=== PATIENT | female | born 1955 | race Caucasian/White ===

== ENCOUNTER 2024-05-14 13:08 | Emergency (ER) | payer MEDICARE, OTHER, SELFPAY ==
[2024-05-14 13:17] VITALS: BP 140/98
--- NOTE | 2024-05-14 14:01 | ED.GENMED ---
History of Present Illness
General
Chief Complaint: Heart Rate Problem
Source: patient
Exam Limitations: none
Time Seen by Provider: 05/14/24 13:55
History of Present Illness
History of Present Illness:
See MDM
Past History
Past History
ED Past Medical History: HTN and Psychiatric
ED Past Surgical History: Orthopedic
Social History
Tobacco: Non-smoker
Alcohol: None
Phy Exam
Physical Exam
Physical Exam:
See MDM
Course
Orders/Labs/Results
Orders:
Orders
05/14/24 13:10
ECG [Electrocardiogram (*1)] Urgent
Reason for Study: Abnormal EKG
EKG- Treatment ONCE
05/14/24 14:00
Diltiazem HCl [Cardizem] 20 mg IV NOW STA
05/14/24 14:13
Complete Blood Count/With Diff Urgent
Comprehensive Metabolic Panel Urgent
Free T4 Urgent
Magnesium Urgent
TSH Reflex To Free T4 Urgent
05/14/24 14:16
Add On- LAB Urgent
Tests Added?: tsh
05/14/24 14:57
Apixaban [Eliquis] 5 mg PO ONCE ONE
Metoprolol Xl [Toprol Xl] 25 mg PO NOW STA
Abnormal Lab Results
05/14/24
14:13
MCHC 32.9 L g/dL
(33.0-37.0)
Absolute Monos (auto) 0.7 H 10^3/uL
(0.1-0.6)
Lymphocytes % 15.9 L %
(20.5-51.1)
Glucose 112 H mg/dl
(70-99)
TSH (Reflex) 0.11 L uIU/ml
(0.47-4.68)
05/14/24 14:13
05/14/24 14:13
Vital Signs
Initial and Last Documented VS:
Initial Vital Signs
Temp Pulse Resp BP Pulse Ox
97.7 F 72 16 140/98 98
05/14/24 13:17 05/14/24 13:17 05/14/24 13:17 05/14/24 13:17 05/14/24 13:17
Last Documented Vital Signs
Temp Pulse Resp BP Pulse Ox
97.7 F 75 22 126/90 95
05/14/24 13:17 05/14/24 15:08 05/14/24 14:25 05/14/24 15:08 05/14/24 14:13
MDM/Problems Addressed
Differential Diagnosis Includes:
HPI and MDM Narrative:
68-year-old female presenting with new onset A-fib. Patient states her Apple Watch had indicated that she has been in A-fib for the past 2 weeks. She has been mildly short of breath with a viral URI. She took steroids which seemed to help.
Patient denies any chest pain or palpitation
Patient is not on anticoagulation. Will give IV dose of Cardizem to help rate control. She is otherwise well-appearing and nontoxic.
Physical exam
General: Well appearing and non-toxic
HEENT: protecting airway
Neck: appears supple
CV: No evidence of cyanosis. Tachycardic and irregular
Resp: No accessory muscle use. Lungs clear
Abd: Non-distended
Extremities: Mild nonpitting dependent edema in both legs which patient states is chronic
Neuro: alert
Psych: Normal affect
Skin: Intact
Problems Addressed including Acute and Chronic Conditions affecting care:
1. New onset A-fib
Acuity: acute
Prognosis: stable
Details: Will give dose of IV Cardizem. She is not a electrical cardioversion candidate because she is not anticoagulated
Updates
Electrolytes within normal limits. Patient is rate controlled and feels comfortable going home. Patient started on metoprolol. She was given a coupon for 30-day free Eliquis
Patient wanted to leave before thyroid function came back and she states that she will have her PCP followed up
Differential Diagnosis (but not limited to): Hyperthyroidism, new onset A-fib
Testing considered: Chest x-ray but lungs clear
Drug therapy (if applicable): OTC meds, please see d/c instruction regarding Rx drugs
Amount and/or Complexity of Data Reviewed
Clinical info obtained from: Patient
External data reviewed: N/A
Labs I independently reviewed (but not limited to): Electrolytes within normal limits
Radiology: N/A
Pulse Ox: not hypoxic
EKG independently reviewed: A-fib with RVR, normal axis, no STEMI
Sand Sifter: N/A
Critical Care: N/A
Risk of Complication:
Social Determinants of health: Good social support
Discussed with other providers: N/A
Escalation of Care includes Admit/Obs: After being observed in the Emergency Department, pt stable for discharge.
Occasional wrong word or 'sound a like' substitutions may have occurred due to the inherent limitations of voice recognition software. Read the chart carefully and recognize, using context, where substitutions have occurred.
*Critical Care Note
Total Time (30-74mins, 75-104mins- exclusive of procedures): Not Applicable
ED Attending Note
-
Portions of this chart may have been created with voice recognition software.� Occasional wrong word or��sound alike� substitutions may have occurred due to the inherent limitations of voice recognition software.
Discharge Plan
Departure
Patient Disposition: Home (Routine Discharge)
Date of Disposition: 05/14/24
Time of Disposition: 15:45
Patient with high blood pressure during this ER visit?: No
Discharge Problem:
New onset a-fib
Instructions: Atrial Fibrillation (DC)
Prescriptions:
New
Eliquis 5 mg tablet
5 mg PO BID Qty: 60 0RF
metoprolol succinate [Toprol XL] 25 mg tablet extended release 24 hr
25 mg PO DAILY Qty: 30 0RF
Referrals:
Rayna Painting DO [Family Provider] -
Julien Roberts MD [Active] -
Activity Restrictions/Additional Instructions:
Please return for any worsening symptoms.
You may return at any time if you have further concerns.
Please follow up with your doctor at the first available appointment, preferably this week.
Please follow-up with the advertising operations manager.
Thank you for choosing [facility].
Interventions
Interventions:
*Risk Screen - Suicide Last Done: 05/14/24 13:17
*General Assessment Last Done: 05/14/24 13:17
*Neglect/Abuse Screening Last Done: 05/14/24 13:17
ED- Fall Risk Assessment Last Done: 05/14/24 14:26
ED- Cardiac Assessment Last Done: 05/14/24 14:26
ED- Pulmonary Assessment Last Done: 05/14/24 14:26
Discharge Date and Time
Print Language: LAO
[2024-05-14 14:17] VITALS: BP 138/78
[2024-05-14 14:19] LABS: % Basophils 1.2 % (0-2); % Eosinophils 2.2 % (0-6); % Immature Granulocytes 0.2 % (0-0.5); % Lymphocytes 15.9 % (20.5-51.1); % Monocytes 7.8 % (1.7-9.3); % Neutrophils 72.7 % (42.2-75.2); Absolute Basophils 0.1 10^3/uL (0-0.2); Absolute Eosinophils 0.2 10^3/uL (0-0.7); Absolute Lymphocytes 1.3 10^3/uL (1.2-3.4); Absolute Monocytes 0.7 10^3/uL (0.1-0.6); Absolute Neutrophils 6.1 10^3/uL (1.4-6.5); Hematocrit 42.9 % (37.0-47.0); Hemoglobin 14.1 g/dL (12.0-16.0); Mean Corp Hgb Conc. 32.9 g/dL (33.0-37.0); Mean Corpuscular Hgb 30.8 pg (27.0-31.0); Mean Corpuscular Volume 93.7 fL (81.0-99.0); Mean Platelet Volume 10.4 fL (7.4-10.4); Nucleated Red Blood Cells % 0 %; Platelet Count 240 10^3/uL (130-400); Red Blood Cell Count 4.58 10^6/uL (4.20-5.40); White Blood Cell Count 8.4 10^3/uL (4.8-10.8)
[2024-05-14] MEDS: CARDIZEM 20 MG IV (14:23)
[2024-05-14 14:24] VITALS: BMI 37.5
[2024-05-14 14:33] LABS: ALT (SGPT) 18 U/L (0-35); AST (SGOT) 28 U/L (14-36); Albumin 4.4 g/dl (3.5-5.0); Alkaline Phosphatase 60 U/L (38-126); Blood Urea Nitrogen 14 mg/dl (7-17); Calcium 9.4 mg/dl (8.4-10.2); Carbon Dioxide 26 mmol/L (22-30); Chloride 103 mmol/L (98-107); Estimated Creatinine Clearance 101 ml/min; Glucose 112 mg/dl (70-99); Potassium 4.2 mmol/L (3.5-5.1); Sodium 143 mmol/L (135-145); Total Bilirubin 0.7 mg/dl (0.2-1.3); Total Protein 6.7 g/dl (6.3-8.2); eGFR > 60.00
[2024-05-14] MEDS: TOPROL XL 25 MG PO (15:08)
[2024-05-14] MEDS: ELIQUIS 5 MG PO (15:08)
[2024-05-14 15:41] LABS: TSH Reflex To Free T4 0.11 uIU/ml (0.47-4.68)
[2024-05-14 16:39] LABS: Free T4 1.22 ng/dl (0.78-2.19)
== END 2024-05-14 16:35 | disposition home or self-care (01) ==
LOC: EMR 13:08
PROVIDERS: EMERGENCY PHYSICIAN Student in an Organized Health Care Education/Training Program; FAMILY PHYSICIAN Family Medicine
DX: I48.91 Unspecified atrial fibrillation (principal); I10 Essential (primary) hypertension
CPT/HCPCS: 96374; 99284; 80053; 83735; 84439; 84443; 85025; 93005

== ENCOUNTER 2024-05-18 19:12 | Inpatient (IN) | payer MEDICARE, OTHER, SELFPAY ==
[2024-05-18] VITALS (7 sets, daily range): BP systolic 100–131; BP diastolic 54–100; BMI 37.3; BMI 36.1
--- NOTE | 2024-05-18 15:37 | W.PN.CD ---
Today's Communication / Plan
-
This is a consultation summary. Please see scanned consultation.
Diuresis with furosemide
Rate control with diltiazem gtt
Impression / Plan
-
BACKGROUND: 68F with anxiety, depression, PTSD, hypertension and recently diagnosed atrial fibrillation presented for outpatient cardiology evaluation was referred to the emergency department for atrial fibrillation with rapid ventricular response
and concern for heart failure.
Primary Phosphorus Processing Supervisor: Dr Mann
PLAN:
Shortness of breath
-This could be multifactorial in the setting of RVR and acute heart failure, plan as below
Atrial fibrillation with rapid ventricular response, persistent versus paroxysmal
-Start diltiazem bolus with drip for rate control
-Eventual rhythm control with FACUNDO/cardioversion when we have reached euvolemia (?)
-Oral Anticoagulation: Apixaban 5 mg twice daily, started 05/14/2024
-[id number]: score at least 5 (Heart failure, HTN, Diabetes Mellitus, age 65-74, female gender)
-TSH low but free T4 stable during prior ER visit
Heart failure, presumed HFpEF, acute
-Diuresis with furosemide, this requires intensive monitoring
-CXR and proBNP are pending, she has lower extremity edema (she attributes this to Toprol-XL) along with shortness of breath and orthopnea
-Trend daily weight, I/O, and BMP with diuresis
-Echocardiogram when rates have improved
-Case management to muhammad SGLT2
Hypertension
-Stop nebivolol, continue losartan
Right subclavian artery aneurysm
Type 2 diabetes, HgbA1c pending
Former smoker, continue cessation recommended
Obesity, prior VSG
ADHD on Adderall
Anxiety/depression/PTSD
SUBJECTIVE:
She endorses orthopnea, shortness of breath, and lower extremity edema
Physical Exam
Vital Signs/Labs
Vital Signs
Temp Pulse Resp BP Pulse Ox
98.6 F 85 18 131/100 96
05/18/24 15:15 05/18/24 15:15 05/18/24 15:15 05/18/24 15:15 05/18/24 15:15
Physical Exam
Constitutional: No acute distress and Comfortable
EENT: Anicteric and Moist mucous membranes
Cardiovascular: Pedal edema present (Bilateral lower extremity edema), S1S2 is normal and Murmur/rub/gallop absent
Respiratory: Labored respirations and Crackles Present
GI: Soft, Distention absent, Flat, Non tender and Normal bowel sounds
Neuro/Psych: AO x 3
Other: Skin (Warm and dry)
Data Reviewed
-
Date of Service: May 18, 2024
[2024-05-18 16:52] LABS: % Eosinophils 2.3 % (0-6); % Immature Granulocytes 0.4 % (0-0.5); % Lymphocytes 15.4 % (20.5-51.1); % Monocytes 8.9 % (1.7-9.3); Absolute Basophils 0.1 10^3/uL (0-0.2); Absolute Eosinophils 0.2 10^3/uL (0-0.7); Absolute Lymphocytes 1.2 10^3/uL (1.2-3.4); Absolute Monocytes 0.7 10^3/uL (0.1-0.6); Absolute Neutrophils 5.5 10^3/uL (1.4-6.5); Hematocrit 41.2 % (37.0-47.0); Hemoglobin 13.6 g/dL (12.0-16.0); Mean Corpuscular Hgb 31.7 pg (27.0-31.0); Mean Platelet Volume 10.6 fL (7.4-10.4); Nucleated Red Blood Cells % 0 %; Platelet Count 212 10^3/uL (130-400); Red Blood Cell Count 4.29 10^6/uL (4.20-5.40); Red Cell Dist. Width 13.2 % (11.5-14.5); White Blood Cell Count 7.7 10^3/uL (4.8-10.8)
--- NOTE | 2024-05-18 17:03 | ED.GENMED ---
History of Present Illness
General
Chief Complaint: Heart Rate Problem
Source: patient
Time Seen by Provider: 05/18/24 16:36
History of Present Illness
History of Present Illness:
68-year-old female presents to the emergency room for evaluation of shortness of breath, peripheral edema. Patient discovered that she was in atrial fibrillation by using her Apple Watch a few days ago. She was seen in the emergency room 4 days
ago. She was rate controlled with beta-blockers, started on Eliquis and discharged for outpatient follow-up. Patient followed up with cardiology today. Since discharge from the emergency room she has been experiencing worsening shortness of
breath and edema. She was therefore sent to the emergency room today for hospitalization so that she may undergo diuresis, rate control and cardioversion. Patient denies chest pain. She does feel more short of breath with exertion. She cannot
tell if she has orthopnea because she can never lay flat due to previous back surgery. Patient has been compliant with her Eliquis since being discharged on Friday. Her last dose was this morning.
Past History
Past History
ED Past Medical History: HTN and Psychiatric
ED Past Surgical History: Orthopedic
Social History
Tobacco: Non-smoker
Alcohol: None
Phy Exam
Physical Exam
Physical Exam:
General: Awake, Alert, Oriented X3. No acute distress.
Vitals: Tachycardic
Head: Atraumatic
Eyes: Pupils equal, EOMI
Throat: Airway intact, no exudates
Neck: Trachea midline
Lungs: Crackles bilateral bases
Heart: Rapid, regular
Abd: Soft, Nontender, No pulsatile mass
Neuro: Nonfocal
Skin: Warm, dry, no rash
Extremities: pulses equal b/l, 2+ edema
Course
Orders/Labs/Results
Orders:
Orders
05/18/24 Dinner
Regular
At Your Request: Full Participation
05/18/24 15:06
Electrocardiogram (*1) Urgent
Reason for Study: Chest Pain
EKG- Treatment ONCE
05/18/24 15:41
Add On- LAB Routine
Tests Added?: proBNP, TSH relfex to T4
05/18/24 16:18
Add On- LAB Routine
Tests Added?: Hgba1c
05/18/24 16:27
Basic Metabolic Panel Urgent
Complete Blood Count/With Diff Urgent
Free T4 Urgent
Glycohemoglobin (HgbA1c) Urgent
NT-proBNP Urgent
Comment: ADD ON
TSH Reflex To Free T4 Urgent
Comment: ADD ON
05/18/24 16:59
Diltiazem 125 mg/125 ml Nss [Cardizem] 125 mg in 125 ml IV NOW
Initial dose in mg/hr, then titrate:: 5
Titrate to keep:: Heart rate 80-100 bpm
Titrate by mg/hr:: 5 mg/hr
Frequency of titrations (minutes):: 15
Maximum dose in mg/hr:: 15
Diltiazem HCl [Cardizem] 15 mg IV NOW STA
Furosemide [Lasix] 40 mg IV NOW STA
05/18/24 17:00
CR Chest - 2 Views Urgent
Comment:
Reason For Exam: shortness of breath, edema
05/18/24 17:32
Case Management Consult ONCE
Case Management Consult: Discharge Planning
Comment: Please muhammad for patient:
Farxiga 10 mg daily
Jardiance 10 mg daily
05/18/24 18:17
Admit/Transfer Patient As Directed
Co-Sign Provider:
Level of Care: Inpatient admission
Assign to:: IVU
Physician / Group: Hospitalist
Diagnosis: Afib
Reason for Hospitalization: .
Expected length of stay greater than two midnights?: Yes
ELOS- Estimated Length of Stay in days: 3
I certify the patient meets the requirements for IP care: Yes
Code Status As Directed
Resuscitation Status: Full Code
PRN Pain Medication Management As Directed
May give lesser potent ordered pain med per pt: Yes
preference::
Protocol:: Medication orders for pain may be administered in a
manner that supports deferring to patient preference
when the pt is:
- Requesting an ordered lesser potent pain medication.
Least to most potent pain medications are defined
as: acetaminophen < NSAID < tramadol < opioids
(morphine, oxycodone, hydromorphone).
- Requesting a lesser dose of the same medication IF
ORDERED.
- Requesting a less intrusive route of administration
if both routes are prescribed by the provider (PO <
IV).
05/18/24 18:48
Potassium Stat
Troponin I Stat
05/18/24 19:52
Albuterol [ProAIR HFA INHALER] 2 puff INH R Q4HPRN PRN
Alprazolam [Xanax] 0.5 mg PO DAILYPRN PRN
Diltiazem 125 mg/125 ml Nss [Cardizem] 125 mg in 125 ml IV PER PROTOCOL
Initial dose in mg/hr, then titrate:: 5
Titrate to keep:: Heart rate 80-100 bpm
Titrate by mg/hr:: 5 mg/hr
Frequency of titrations (minutes):: 15
Maximum dose in mg/hr:: 15
05/18/24 19:52
Echo 2D MMode Color/Doppler [Echo 2D MMode Color/Doppler] Routine
Reason for Study: Heart failure
Consult Cardiology [CARDIOLOGY CONSULT] Routine
Consulting Provider: Adeel Mann
Was physician already notified: Yes
Reason for consult: A fib
Weight As Directed
Frequency: Daily
05/18/24 20:00
Apixaban [Eliquis] 5 mg PO BID
05/18/24 22:00
Alprazolam [Xanax] 0.5 mg PO HS
Ropinirole [Requip] 1 mg PO HS
Trazodone [Desyrel] 100 mg PO HS
05/19/24 06:00
BMP [Basic Metabolic Panel] IN AM
Magnesium IN AM
05/19/24 08:00
Amphet Asp/Amphet/D-Amphet [Adderall] 10 mg PO BID@0800,1300
Furosemide [Lasix] 40 mg IV BID AT 0800,1600
Rosuvastatin Calcium [Crestor] 5 mg PO DAILY
Abnormal Lab Results
05/18/24
16:27
MCH 31.7 H pg
(27.0-31.0)
MPV 10.6 H fL
(7.4-10.4)
Absolute Monos (auto) 0.7 H 10^3/uL
(0.1-0.6)
Lymphocytes % 15.4 L %
(20.5-51.1)
Glucose 100 H mg/dl
(70-99)
TSH (Reflex) 0.41 L uIU/ml
(0.47-4.68)
05/18/24 16:27
05/18/24 18:48
Vital Signs
Initial and Last Documented VS:
Initial Vital Signs
Temp Pulse Resp BP Pulse Ox
98.6 F 85 18 131/100 96
05/18/24 15:15 05/18/24 15:15 05/18/24 15:15 05/18/24 15:15 05/18/24 15:15
Last Documented Vital Signs
Temp Pulse Resp BP Pulse Ox
97.6 F 75 23 110/91 96
05/18/24 22:23 05/18/24 22:16 05/18/24 19:30 05/18/24 22:16 05/18/24 22:23
MDM/Problems Addressed
Differential Diagnosis Includes:
CHF, A-fib with rapid ventricular response, anemia
MDM/Problems Addressed:
Patient presents with increasing peripheral edema, shortness breath with exertion. She was seen recently in the emergency room and started on rate control medication and Eliquis for A-fib. When seen by cardiology she was referred back to the
emergency room. Labs today show her BNP to be elevated at 3370. Cardizem started for rate control. IV Lasix administered. Patient will be admitted to the hospital service.
*Pulse Oximetry
Patient hypoxic: no
*EKG
Interpreted by ED Provider?: Yes
Heart Rate: 122
Rate: tachycardiac
Rhythm: a-fib
Interval: normal interval
QRS Pattern: normal QRS
Ischemia: non-specific ST changes
*Containers Sales Representative Interpretation
Rate: tachycardiac
Interpretation: abnormal
Heart Rate: 122
Rhythm: a-fib
*Critical Care Note
Total Time (30-74mins, 75-104mins- exclusive of procedures): 33 min
comment:
Critical care statement: A total of 33 minutes of critical care time was provided for this patient. This includes management of unstable vital signs, evaluation of the patient at bedside, reviewing the patient's pertinent medical records, discussion
with consultants, review of old EKGs and review of pertinent medical records. This time with separate from time utilized to perform the aforementioned documented procedures
ED Attending Note
-
Portions of this chart may have been created with voice recognition software.� Occasional wrong word or��sound alike� substitutions may have occurred due to the inherent limitations of voice recognition software.
Discharge Plan
Departure
Patient Disposition: Admit
Date of Disposition: 05/18/24
Time of Disposition: 18:01
Admit to: Telemetry
Presentation/result/management discussed w/ accepting MD/DO: Hospitalist
Condition: Fair
Discharge Problem:
Atrial fibrillation with rapid ventricular response, CHF (congestive heart failure)
Interventions
Interventions:
*Risk Screen - Suicide Last Done: 05/18/24 19:59
*General Assessment Last Done: 05/18/24 15:15
*Neglect/Abuse Screening Last Done: 05/18/24 15:15
ED- Fall Risk Assessment Last Done: 05/18/24 16:26
*ED COVID-19 Vaccine History Last Done: 05/18/24 15:15
*Nursing Disposition Last Done: 05/18/24 19:37
ED- Cardiac Assessment Last Done: 05/18/24 16:26
ED- Pulmonary Assessment Last Done: 05/18/24 16:26
Discharge Date and Time
Discharge Date/Time: 05/18/24 19:37
[2024-05-18] MEDS: LASIX 40 MG IV (17:06)
[2024-05-18] MEDS: CARDIZEM 15 MG IV (17:08)
[2024-05-18] MEDS: CARDIZEM 125 IV (17:09)
[2024-05-18 17:11] LABS: Blood Urea Nitrogen 15 mg/dl (7-17); Estimated Creatinine Clearance 122 ml/min; Glucose 100 mg/dl (70-99); Sodium 141 mmol/L (135-145); eGFR > 60.00
[2024-05-18 17:12] LABS: Calcium 9.4 mg/dl (8.4-10.2); Carbon Dioxide 25 mmol/L (22-30); Chloride 104 mmol/L (98-107)
[2024-05-18 17:16] LABS: NT-proBNP 3370 pg/ml
[2024-05-18 17:39] LABS: TSH Reflex To Free T4 0.41 uIU/ml (0.47-4.68)
--- NOTE | 2024-05-18 18:03 | HPS.HSE ---
Family Physician
-
Family Physician: Rayna Painting
Chief Complaint
-
Exertional shortness of breath for few days duration with new onset of atrial fibrillation. Patient was sent from cardiology office
History of Present Illness
This is 68 years old female presented with history of shortness of breath and worsening peripheral edema. Patient was found to have atrial fibrillation was recently started on Eliquis. She was taking Bystolic but she was changed to metoprolol.
She felt metoprolol exacerbated her peripheral lower extremity edema. She denied chest pain. She presented for cardiology appointment today and she was referred to the hospital for management of uncontrolled atrial fibrillation with suspected
heart failure. In the emergency room, she was started on intravenous Cardizem. Her heart rate was around 70 on Cardizem drip and still in atrial fibrillation.
Medical History
Past Medical History
Past Medical History: Reports Other (Hypertension, A-fib, chronic insomnia, anxiety, depression, PTSD, restless leg syndrome, Gastroesophageal reflux disease)
Past Surgical History: Reports Other (No recent major surgery)
Social History
Tobacco: Non-smoker
Alcohol: None
Drug: None
Personal:
Living: With Family
Employment: Retired (Nurse)
Family History
Family History: Other (Her mother had RI at age of 80s, Hx of CVA )
Allergies / Home Medications
Allergies reflects when Allergies were last updated in [facility].
Home Medications with original date entered in [facility]
Allergy/Medication List:
Allergies
Allergy/AdvReac Type Severity Reaction Status Date / Time
No Known Allergies Allergy Unverified 05/14/24 13:17
Home Medications
apixaban 5 mg tablet (Eliquis) 5 mg PO BID #60 tabs 05/14/24
metoprolol succinate 25 mg tablet,extended release 24 hr (Toprol XL) 25 mg PO DAILY #30 tabs 05/14/24
Review of Systems
-
History Source: Patient
A 12 point ROS was completed and negative except as noted: Yes
Constitutional: Reports Weight Loss; Denies Fever, Weight Gain or Chills
EENT: Denies Sore Throat or Runny Nose
Respiratory: Reports Trouble Breathing; Denies Cough
Cardiac: Denies Chest Pain
Abdomen/GI: Denies Abdominal Pain
: Reports Incontinence; Denies Frequency
Musculoskeletal: Denies Joint Pain or Joint Swelling
Skin: Denies Rash
Neurological: Denies Numbness
Endocrine: Denies Temp Intolerance
Hematologic/Lymphatic: Denies Bruising
Psych: Denies Panic Disorder
Physical Exam
Vital Signs
Vital Signs
Temp Pulse Resp BP Pulse Ox
98.6 F 91 17 109/68 93
05/18/24 15:15 05/18/24 17:15 05/18/24 17:15 05/18/24 17:08 05/18/24 17:15
Physical Exam
General: No Apparent Distress, Comfortable and Conversant
HEENT: Anicteric, Moist mucous membranes and Atraumatic
Respiratory: Rales (mild at bases )
Cardiac: S1/S2, Irregular Rhythm and Peripheral Edema; No Murmur
GI: Soft, Non Tender and Non Distended
Rectal: No Maroon Stools
Genito-urinary: No costovertebral tender
Musculoskeletal: No Clubbing and No Cyanosis
Skin: No Jaundice
Neuro: AO x 3 and Nonfocal/grossly intact
Psych: Calm and Intact Judgment/Insight
Laboratory Results
-
05/18/24 16:27
05/18/24 16:27
Laboratory Results
Total Bilirubin Cancelled 05/18/24 16:27
AST Cancelled 05/18/24 16:27
ALT Cancelled 05/18/24 16:27
Alkaline Phosphatase Cancelled 05/18/24 16:27
Impression/Plan
-
68 years old female presented with history of worsening exertional shortness of breath with new onset atrial fibrillation
#Acute heart failure, suspect diastolic in nature, likely precipitated by uncontrolled tachycardia/A-fib
Admit the patient to the hospital. Patient reported progressive exertional shortness of breath and peripheral edema with no chest pain. Continue rate control. Follow weight. Continue with intravenous Lasix. EKG, atrial fibrillation with
nonspecific ST changes. Continue to monitor renal function and electrolytes. Check troponin. Order echocardiogram.
#Paroxysmal atrial fibrillation, on rapid ventricular response
Continue conveyor monitor. Continue Cardizem drip and titrate down to oral medication as possible. Continue with Eliquis.
#History of anxiety/depression. Mood is cooperative. Continue home medication. She is on Pristiq which she will bring from home.
#History of severe restless leg syndrome, continue with ropinirole
History of urinary incontinence
History of GERD, continue with PPI
#DVT prophylaxis, continue with Eliquis
Total time spent to see the patient, examine the patient on the floor, review data and lab results, discuss treatment plan with patient, ER doctor, nursing staff around 75 minutes
[2024-05-18 18:07] LABS: Free T4 1.21 ng/dl (0.78-2.19)
[2024-05-18 19:14] LABS: Potassium 3.8 mmol/L (3.5-5.1)
[2024-05-18 19:21] LABS: Troponin I < 0.012 ng/ml
[2024-05-18] MEDS: ELIQUIS 5 MG PO (20:19)
[2024-05-18] MEDS: NON-FORMULARY ITEM PO (20:47)
--- NOTE | 2024-05-18 20:47 | PTCARENOTE ---
Pt. received from ED. Pt. arriving on stretcher, AOx3, tele reading Afib in the 80s-110s. Last BP 109/75. Cardizem gtt @ 5ml/hr. Titrating per protocol. RN explained plan of care to patient, pt. verbalizes understanding. Call torres within reach.
Continuing to monitor at this time.
[2024-05-18] MEDS: REQUIP 1 MG PO (22:18)
[2024-05-18] MEDS: DESYREL 100 MG PO ×2 (22:18→23:07)
[2024-05-18] MEDS: XANAX 0.5 MG PO (22:18)
[2024-05-19] VITALS (7 sets, daily range): BP systolic 100–138; BP diastolic 74–108; BMI 36.1; BMI 35.6
[2024-05-19 05:06] LABS: Blood Urea Nitrogen 14 mg/dl (7-17); Calcium 9.2 mg/dl (8.4-10.2); Carbon Dioxide 32 mmol/L (22-30); Chloride 101 mmol/L (98-107); Estimated Creatinine Clearance 101 ml/min; Glucose 118 mg/dl (70-99); Magnesium 1.9 mg/dl (1.6-2.3); Sodium 143 mmol/L (135-145); eGFR > 60.00
--- NOTE | 2024-05-19 06:42 | W.PN.HOSP.TC ---
Today's Communication/Plan
-
c/w Eliquis
Change to oral Cardizem
Will need to bring her home medications ( omeprazole, desvenlafaxine, Gemtesa)
Assessment / Plan
Assessment / Plan
Physical Exam
General: No Apparent Distress, Comfortable and Conversant
HEENT: Anicteric, Moist mucous membranes and Atraumatic
Respiratory: Rales (mild at bases )
Cardiac: S1/S2, Irregular Rhythm and Peripheral Edema; No Murmur
GI: Soft, Non Tender and Non Distended
Rectal: No Maroon Stools
Genito-urinary: No costovertebral tender
Musculoskeletal: No Clubbing and No Cyanosis
Skin: No Jaundice
Neuro: AO x 3 and Nonfocal/grossly intact
Psych: Calm and Intact Judgment/Insight
68 years old female presented with history of worsening exertional shortness of breath with new onset atrial fibrillation
#Acute heart failure, suspect diastolic in nature, likely precipitated by uncontrolled tachycardia/A-fib
Admit the patient to the hospital. Patient reported progressive exertional shortness of breath and peripheral edema with no chest pain. Continue rate control. Follow weight. Continue with intravenous Lasix. EKG, atrial fibrillation with
nonspecific ST changes. Negative troponin. Continue to monitor renal function and electrolytes. Order echocardiogram. Consulted cardiology .
#Paroxysmal atrial fibrillation, on rapid ventricular response
Continue compliance monitor.
s/p Cardizem drip, can change to oral Cardizem
[id number]: 4 Continue with Eliquis.
#History of anxiety/depression. Mood is cooperative. Continue home medications. She is on Pristiq which she will bring from home.
#History of severe restless leg syndrome, continue with ropinirole
# History of urinary incontinence
#History of GERD, continue with PPI
#DVT prophylaxis, continue with Eliquis
Total time spent to see the patient, examine the patient on the floor, review data and lab results, discuss treatment plan with patient, nursing staff around 55 minutes
Anticipated Discharge: 24 - 48 hours
Subjective/Interval History
-
Date of Service: May 19, 2024
Objective Data
-
Labs:
Laboratory Results
05/18/24 05/19/24
18:48 04:09
Sodium 143
Potassium 3.8 4.0
Chloride 101
Carbon Dioxide 32 H
BUN 14
Creatinine 0.7
Glucose 118 H
Calcium 9.2
Vital Signs:
Vital Signs
Temp Pulse Resp BP Pulse Ox
98.1 F 70 23 125/86 95
05/19/24 04:13 05/19/24 05:00 05/18/24 19:30 05/19/24 04:12 05/19/24 04:13
I&O
05/17/24 05/18/24 05/19/24
06:59 06:59 06:59
Intake Total 100 / 100
Output Total 200 / 200
Balance -100 / -100
--- NOTE | 2024-05-19 07:36 | W.PN.CD ---
Today's Communication / Plan
-
Stop dilt gtt, start dilt 60 q6hr
Cont diuresis
NPO after midnight whitney DCCV tomorrow
Impression / Plan
-
BACKGROUND: 68F with anxiety, depression, PTSD, hypertension and recently diagnosed atrial fibrillation presented for outpatient cardiology evaluation was referred to the emergency department for atrial fibrillation with rapid ventricular response
and concern for heart failure.
Primary Motors And Generators Inspector: Dr Mann
PLAN:
Shortness of breath
-Improved likely related to volume and AF RVR
Atrial fibrillation with rapid ventricular response, persistent versus paroxysmal
-Transition to dilt 60 q6hr, plan to start long acting tomorrow
-Eventual rhythm control with WHITNEY/cardioversion when we have reached euvolemia (?)
-Oral Anticoagulation: Apixaban 5 mg twice daily, started 05/14/2024
-[id number]: score at least 5 (Heart failure, HTN, Diabetes Mellitus, age 65-74, female gender)
-TSH low but free T4 stable during prior ER visit
Heart failure, presumed HFpEF, acute
-Cont IV diuresis, stop diuresis tomorrow
-Trend daily weight, I/O, and BMP with diuresis
-Echocardiogram today
-Case management to muhammad SGLT2
Hypertension
-Stop nebivolol, continue losartan
Right subclavian artery aneurysm
Type 2 diabetes, HgbA1c pending
Former smoker, continue cessation recommended
Obesity, prior VSG
ADHD on Adderall
Anxiety/depression/PTSD
SUBJECTIVE:
Feeling better today no new CV symptoms
Physical Exam
Vital Signs/Labs
Vital Signs
Temp Pulse Resp BP Pulse Ox
98 F 70 18 125/86 94
05/19/24 07:30 05/19/24 07:15 05/19/24 07:30 05/19/24 04:12 05/19/24 07:30
05/18/24 05/19/24 05/20/24
06:59 06:59 06:59
Actual Weight 247 lb 12.793 oz
05/18/24 16:27
05/19/24 04:09
Magnesium 1.9 mg/dl (1.6-2.3) 05/19/24 04:09
Free T4 1.21 ng/dl (0.78-2.19) 05/18/24 16:27
05/18/24
16:27
Qwc-[id number]-Ntocnlqjjlp Pept 3370
LAB Results
05/18/24
18:48
Troponin I < 0.012
Physical Exam
Constitutional: No acute distress and Comfortable
EENT: Anicteric
Cardiovascular: Rhythm/rate is irregular and Pedal edema present
Respiratory: Respiratory effort normal and Lungs clear to auscul.
GI: Soft
Neuro/Psych: AO x 3
Data Reviewed
-
Date of Service: May 19, 2024
Medical Decision Making: Reviewed Test Results
EKG: Tracing Personally Visualized and interpreted (af)
Echo: Report Reviewed by me
Labs: Labs Reviewed by me
[2024-05-19] MEDS: CARDIZEM 60 MG PO ×4 (08:30→23:04)
[2024-05-19] MEDS: ELIQUIS 5 MG PO ×2 (08:30→20:19)
[2024-05-19] MEDS: CRESTOR 5 MG PO (08:30)
[2024-05-19] MEDS: ADDERALL 10 MG PO (08:30)
[2024-05-19] MEDS: LASIX 40 MG IV ×2 (08:30→16:02)
[2024-05-19 09:27] LABS: Glycohemoglobin (HgbA1c) 6.3 % (4.0-5.6)
--- NOTE | 2024-05-19 10:30 | CARDSERVLU ---
Echocardiogram with Lumason completed after protocol screening completed. Allergies verified.
Patent IV site: __L hand___
IV site flushed with 0.9% NaCl pre and post administration.
Diluted bolus method utilized to enhance visualization of ventricular rader.
Total volume given: _2.5___ mL
Patient tolerated all procedures well without complications.
--- NOTE | 2024-05-19 10:38 | CM ---
Priced Jaguar, Sabrina and Eliquis thru insurance, .
Additionally, priced Eliquis thru insurance as she was just put on this.
Estimated cost for all medications are $0/mo.
TT to [facility] to update.
[2024-05-19] MEDS: NON-FORMULARY ITEM 6 TABLET PO (11:04)
[2024-05-19] MEDS: ADDERALL PO (12:58)
--- NOTE | 2024-05-19 13:56 | CM ---
CM following for DC planning needs.
Met w/ patient and spouse at bedside to complete initial assessment.
Pt. resides w/ spouse in a private, split level home. There are 6-7 steps between levels. Pt. is functionally indep. at baseline w/ ADLs, mobility without the use of any assisted device. Pt. does have a SPC in the home, which she uses for community
long distances.
Pt. has RX plan and uses [facility] for prescription needs.
Reviewed estimated cost of Sabrina, Jaguar and Elidallas of $0. Pt. states that she is currently out of 'the donut hole' and is searching for other Rx plans for new year to lower cost. She is well-versed in this.
Pt. declines any needs at time of DC.
Will remain available.
Anticipate home, no needs.
[2024-05-19] MEDS: NON-FORMULARY ITEM 1 MG PO ×3 (14:02→14:29)
--- NOTE | 2024-05-19 16:20 | PTCARENOTE ---
no change in previous assessment. Pt ambulating in room without difficulty. Pt in afib. IV lasix given as ordered.
[2024-05-19] MEDS: REQUIP 0.5 MG PO (18:10)
[2024-05-19] MEDS: TYLENOL 650 MG PO (20:18)
--- NOTE | 2024-05-19 22:45 | PTCARENOTE ---
Patient ambulating self in room/hallways w/out difficulty. Tele remains Afib w/ occasional PVCs, HR in the 70-110s. Pt denies any chest discomfort or palpitations. Pt reports feeling MONTANEZ, pulse ox 94-97% RA. Lungs clear throughout. Patient aware to
maintain NPO status at midnight for a Kareem/CV on 05/20. Call torres within reach.
[2024-05-19] MEDS: XANAX 0.5 MG PO (23:04)
[2024-05-19] MEDS: DESYREL 200 MG PO (23:04)
[2024-05-19] MEDS: REQUIP 1 MG PO (23:04)
[2024-05-20] VITALS (7 sets, daily range): BP systolic 92–126; BP diastolic 48–88; BMI 35.1
[2024-05-20 04:52] LABS: Blood Urea Nitrogen 13 mg/dl (7-17); Calcium 9.1 mg/dl (8.4-10.2); Carbon Dioxide 35 mmol/L (22-30); Chloride 98 mmol/L (98-107); Estimated Creatinine Clearance 99 ml/min; Glucose 93 mg/dl (70-99); Potassium 3.6 mmol/L (3.5-5.1); Sodium 141 mmol/L (135-145); eGFR > 60.00
--- NOTE | 2024-05-20 06:21 | W.PN.HOSP.TC ---
Today's Communication/Plan
-
She is NPO for cardioversion
Will follow
Assessment / Plan
Assessment / Plan
Physical Exam
General: No Apparent Distress, Comfortable and Conversant
HEENT: Anicteric, Moist mucous membranes and Atraumatic
Respiratory: Rales (mild at bases )
Cardiac: S1/S2, Irregular Rhythm and Peripheral Edema; No Murmur
GI: Soft, Non Tender and Non Distended
Rectal: No Maroon Stools
Genito-urinary: No costovertebral tender
Musculoskeletal: No Clubbing and No Cyanosis
Skin: No Jaundice
Neuro: AO x 3 and Nonfocal/grossly intact
Psych: Calm and Intact Judgment/Insight
68 years old female presented with history of worsening exertional shortness of breath with new onset atrial fibrillation
#Acute heart failure, suspect diastolic in nature, likely precipitated by uncontrolled tachycardia/A-fib
Admit the patient to the hospital. Patient reported progressive exertional shortness of breath and peripheral edema with no chest pain. Continue rate control. Follow weight. Continue with intravenous Lasix. EKG, atrial fibrillation with
nonspecific ST changes. Negative troponin. Continue to monitor renal function and electrolytes. Order echocardiogram. Consulted cardiology .
#Paroxysmal atrial fibrillation, on rapid ventricular response
She is NPO for cardioversion
Continue monitor tech.
s/p Cardizem drip, can change to oral Cardizem
[id number]: 4 Continue with Eliquis.
#History of anxiety/depression. Mood is cooperative. Continue home medications. She is on Pristiq which she will bring from home.
#History of severe restless leg syndrome, continue with ropinirole
# History of urinary incontinence
#History of GERD, continue with PPI
#DVT prophylaxis, continue with Eliquis
Total time spent to see the patient, examine the patient on the floor, review data and lab results, discuss treatment plan with patient, nursing staff around 55 minutes
Anticipated Discharge: Within 24 hours
Subjective/Interval History
-
Date of Service: May 20, 2024
No sob
No chest pain
Objective Data
-
Labs:
Laboratory Results
05/20/24
04:07
Sodium 141
Potassium 3.6
Chloride 98
Carbon Dioxide 35 H
BUN 13
Creatinine 0.7
Glucose 93
Calcium 9.1
Vital Signs:
Vital Signs
Temp Pulse Resp BP Pulse Ox
97.4 F 83 20 92/48 95
05/20/24 03:57 05/20/24 04:00 05/20/24 03:57 05/20/24 03:55 05/20/24 03:57
I&O
05/18/24 05/19/24 05/20/24
06:59 06:59 06:59
Intake Total 100 / 100 500 / 500
Output Total 200 / 200 1000 / 1000
Balance -100 / -100 -500 / -500
[2024-05-20] MEDS: LASIX 40 MG IV ×2 (08:29→15:19)
[2024-05-20] MEDS: ELIQUIS 5 MG PO ×2 (08:30→19:45)
[2024-05-20] MEDS: CRESTOR 5 MG PO (08:30)
[2024-05-20] MEDS: CARDIZEM 60 MG PO ×4 (08:30→22:50)
[2024-05-20] MEDS: NON-FORMULARY ITEM 1 TABLET PO (08:30)
[2024-05-20] MEDS: ADDERALL 10 MG PO ×2 (08:30→12:52)
[2024-05-20] MEDS: FLUSH (NSS) 1 FLUSH IV ×2 (08:33→15:20)
[2024-05-20] MEDS: NON-FORMULARY ITEM 1 MG PO ×3 (08:34)
--- NOTE | 2024-05-20 08:34 | W.PN.CD ---
Addendum entered and electronically signed by Adeel Mann MD 05/25/24 08:05:
Acute HFpEF likely 2/2 AF RVR
Original Note:
Today's Communication / Plan
-
Add Farxiga
Lasix IV today, Lasix 40 mg starting tomorrow and then on Fri and Fridays as outpatinet
Cont AC
We will sign off pls call with questions/concerns.
Impression / Plan
-
BACKGROUND: 68F with anxiety, depression, PTSD, hypertension and recently diagnosed atrial fibrillation presented for outpatient cardiology evaluation was referred to the emergency department for atrial fibrillation with rapid ventricular response
and concern for heart failure.
Primary Accounting Teacher: Dr Mann
PLAN:
Shortness of breath
-Improved likely related to volume and AF RVR
Atrial fibrillation with rapid ventricular response, persistent versus paroxysmal
-Dilt 240 mg
-DCCV today
-Oral Anticoagulation: Apixaban 5 mg twice daily, started 05/14/2024
-[id number]: score at least 5 (Heart failure, HTN, Diabetes Mellitus, age 65-74, female gender)
-TSH low but free T4 stable during prior ER visit
Heart failure, presumed HFpEF, acute
-IV diuresis today, MWF 40 mg lasix thereafter
-Echocardiogram today
-Farxiga 10 daily
Hypertension
-Stop nebivolol, continue losartan
Right subclavian artery aneurysm
Type 2 diabetes, HgbA1c pending
Former smoker, continue cessation recommended
Obesity, prior VSG
ADHD on Adderall
Anxiety/depression/PTSD
SUBJECTIVE:
Continues to feel well
Echo: CONCLUSIONS
Normal left ventricular size and function. LV ejection fraction is 50-55% by
Howard's method of discs.
Enlarged right ventricular size with mild hypokinesis for the lateral free
wall.
No significant valvular disease.
No prior study available for comparison.
Physical Exam
Vital Signs/Labs
Vital Signs
Temp Pulse Resp BP Pulse Ox
97.4 F 71 20 92/48 95
05/20/24 03:57 05/20/24 06:00 05/20/24 03:57 05/20/24 03:55 05/20/24 03:57
05/19/24 05/20/24 05/21/24
06:59 06:59 06:59
Actual Weight 247 lb 12.793 oz 240 lb 15.444 oz
05/18/24 16:27
05/20/24 04:07
Magnesium 1.9 mg/dl (1.6-2.3) 05/19/24 04:09
Free T4 1.21 ng/dl (0.78-2.19) 05/18/24 16:27
05/18/24
16:27
Icx-A-Yufwxccdvuw Pept 3370
LAB Results
05/18/24
18:48
Troponin I < 0.012
Physical Exam
Constitutional: No acute distress and Comfortable
EENT: Anicteric
Cardiovascular: Rhythm/rate is irregular and Pedal edema present (trace )
Respiratory: Respiratory effort normal and Lungs clear to auscul.
GI: Soft
Neuro/Psych: AO x 3
Data Reviewed
-
Date of Service: May 20, 2024
EKG: Tracing Personally Visualized and interpreted (af)
Echo: Report Reviewed by me
Labs: Labs Reviewed by me
--- NOTE | 2024-05-20 10:46 | CM ---
Reviewed chart. Met with Mrs. Gastelum to review discharge plans. Reviewed with her the co-pay cost of Tai is zero co-pay because she is out of the coverage gap. She states she will look for a new prescription coverage options in
the new enrollment period to see if she can get a better cost of the brand name drugs. Prior to admission she resides with her spouse in a spilt-level home with six steps to each level. Prior to admission she was independent with ambulation and
adls. She has a single point cane that she uses for long distances in the community. She has a prescription plan and uses [facility]. Medical work-up in progress. The discharge plan is to return home with her spouse when medically stable.
[2024-05-20] MEDS: FARXIGA 10 MG PO (11:01)
--- NOTE | 2024-05-20 12:41 | PTCARENOTE ---
Pt received this am in afib, rate in the 70's to 90's. Room air sat 97%. Denies any pain or sob. Maintained npo for cardioversion. Pt later went for the cardioversion and returned due to the recent dose of Monjaro.
[2024-05-20] MEDS: XANAX 0.5 MG PO (22:50)
[2024-05-20] MEDS: DESYREL 200 MG PO (23:06)
[2024-05-20] MEDS: REQUIP 1 MG PO (23:06)
--- NOTE | 2024-05-21 01:28 | PTCARENOTE ---
Patient remains Afib w/ PVCs. Denies any pain or discomfort. Ambulating self without difficulty. POC ongoing,call torres within reach
[2024-05-21 04:29] VITALS: BP 101/71
[2024-05-21 04:31] VITALS: BMI 34.4
--- NOTE | 2024-05-21 06:42 | W.PN.HOSP.TC ---
Today's Communication/Plan
-
Will reach out to cardiology regarding dc meds
dc home today
Assessment / Plan
Assessment / Plan
Physical Exam
General: No Apparent Distress, Comfortable and Conversant
HEENT: Anicteric, Moist mucous membranes and Atraumatic
Respiratory: Rales (mild at bases )
Cardiac: S1/S2, Irregular Rhythm and Peripheral Edema; No Murmur
GI: Soft, Non Tender and Non Distended
Rectal: No Maroon Stools
Genito-urinary: No costovertebral tender
Musculoskeletal: No Clubbing and No Cyanosis
Skin: No Jaundice
Neuro: AO x 3 and Nonfocal/grossly intact
Psych: Calm and Intact Judgment/Insight
68 years old female presented with history of worsening exertional shortness of breath with new onset atrial fibrillation
#Acute heart failure, suspect diastolic in nature, likely precipitated by uncontrolled tachycardia/A-fib
Admit the patient to the hospital. Patient reported progressive exertional shortness of breath and peripheral edema with no chest pain. Continue rate control. Follow weight. Continue with intravenous Lasix. EKG, atrial fibrillation with
nonspecific ST changes. Negative troponin. Continue to monitor renal function and electrolytes. Order echocardiogram. Consulted cardiology .
#Paroxysmal atrial fibrillation,
better controlled
No cardioversion done by pleating machine operator.
Continue monitoring engineer.
s/p Cardizem drip, changed to oral Cardizem
[id number]: 4 Continue with Eliquis.
#History of anxiety/depression. Mood is cooperative. Continue home medications. She is on Pristiq which she brought from home.
#History of severe restless leg syndrome, continue with ropinirole
# History of urinary incontinence
#History of GERD, continue with PPI
#DVT prophylaxis, continue with Eliquis
Total discharge time spent to see the patient, examine the patient on the floor, review data and lab results, discuss discharge plan with patient, pleating machine operator, nursing staff around 65 minutes
Anticipated Discharge: Today
Subjective/Interval History
-
Date of Service: May 21, 2024
No chest pain
No sob
Objective Data
-
Vital Signs:
Vital Signs
Temp Pulse Resp BP Pulse Ox
97.7 F 103 18 101/71 94
05/21/24 04:29 05/21/24 05:00 05/21/24 04:29 05/21/24 04:29 05/21/24 04:29
I&O
05/19/24 05/20/24 05/21/24
06:59 06:59 06:59
Intake Total 100 / 100 500 / 500 900 / 900
Output Total 200 / 200 1000 / 1000
Balance -100 / -100 -500 / -500 900 / 900
[2024-05-21 08:09] VITALS: BP 108/93
[2024-05-21] MEDS: ADDERALL 10 MG PO ×2 (09:10→12:07)
[2024-05-21] MEDS: CARDIZEM 60 MG PO ×2 (09:10→12:07)
[2024-05-21] MEDS: FARXIGA 10 MG PO (09:10)
[2024-05-21] MEDS: CRESTOR 5 MG PO (09:11)
[2024-05-21] MEDS: LASIX 40 MG PO (09:11)
[2024-05-21] MEDS: ELIQUIS 5 MG PO (09:11)
[2024-05-21] MEDS: NON-FORMULARY ITEM 6 TABLET PO (09:12)
[2024-05-21] MEDS: NON-FORMULARY ITEM 1 MG PO ×3 (09:13→09:15)
--- NOTE | 2024-05-21 11:24 | W.HF.CON ---
Heart Failure
- LV Function
Left ventricular function study result: LV Ejection fraction >/= 50%
Ejection Fraction Percentage: 50-55
- ARNI
Patient already on ARNI: No
Heart Failure ARNI Not Indicated: LV Ejection Fraction >/= 40%
- ACEI/ARB
Patient already on ACEI/ARB: No
Heart Failure ACEI/ARB Not Indicated: LV Ejection Fraction > 40%
- Beta Ron
Patient already on Evidence Based Beta Ron: No
Heart Failure Evidence Based Beta Orn Not Indicated: LV Ejection Fraction > 40%
- Mineralocorticord Receptor Antagonist
Patient already on MRA: No
Heart Failure MRA Not Indicated: LV Ejection Fraction > 40%
- SGLT-2 Inhibitor
Patient already on SGLT-2 Inhibitor: Yes
- Afib Anticoagulation
Patient already on Anticoagulation for Afib: Yes
- NYHA CHF Classification
NYHA CHF Classification Level: Class III - Symptoms w/ min exertion, interferes w/ nml daily activity
- ACC/AHA Stage
ACC/AHA Stage: Stage C: Symptomatic Heart Failure
[2024-05-21 11:30] VITALS: BP 117/83
[2024-05-21] MEDS: FLUAD (65 yr+) 2024-2025 FORMULA 0.5 ML IM (11:54)
--- NOTE | 2024-05-21 12:04 | CM ---
CM following for DC planning needs.
Reviewed DC plan for home without needs.
Plan: HOME today, no needs.
--- NOTE | 2024-05-21 13:11 | PTCARENOTE ---
Pt received this am in Afib, rate in the 80's to 100's. Pt oob ad blas in the room and hallway. Heart rate goes up with ambulation in the 120's. Pt discharged to home with her . Discharge instructions given and reviewed with good understanding.
--- NOTE | 2024-05-21 13:39 | W.DCSUMMARY ---
Discharge Summary
Discharge Data
Date of Admission: 05/18/24
Date of Discharge: 05/21/24
-
Pending Results: No
Hospital Course
68 years old female presented to the hospital with worsening exertional shortness of breath and new onset atrial fibrillation. She did not have leukocytosis or elevated troponin. Pro-BNP was 3370. Chest radiography showed interstitial markings, left
lower lobe focal opacity consistent with pneumonia, atelectasis or scarring. Patient did not have cough. No fevers. Patient was found to have acute heart failure. She was evaluated by pathology laboratory director. She was found to have paroxysmal atrial
fibrillation. She was initially started on intravenous Cardizem drip but then changed to oral Cardizem. She was started on Eliquis. The goal was to do cardioversion but because of use of Ozempic in outpatient setting and risk of needing
intubation, pathology laboratory director decided to continue with rate control. Atrial fibrillation remained well-controlled around 60-70. Patient received diuretic treatment for heart failure. Echocardiogram showed left ventricular ejection fraction of 50 to
55%, enlarged left ventricle with mild hypokinesis with no significant valvular disease. Ultrasonic Solderer recommended to start Farxiga in addition to oral Lasix upon discharge. She was discharged on Cardizem CD 240 mg daily. Patient remained
hemodynamically stable. She did not need oxygen. She was discharged home in a stable condition. Patient was advise to follow with her primary acre doctor, repeat chest x ray in 2-4 weeks.
Discharge Plan
-
Patient Disposition: Home (Routine Discharge)
Discharge Diagnosis/Procedures: Atrial fibrillation
Diet: As tolerated
Instructions: *CBC Heart Failure Instructions
Referrals:
Adeel Mann MD [Active] - in one to two weeks
Rayna Painting DO [Family Provider] - in one to two weeks (discuss with primary to repeat chest x ray )
Prescriptions:
New
dapagliflozin propanediol 10 mg Tablet
10 mg PO DAILY Qty: 30 0RF
furosemide 40 mg Tablet
40 mg PO Q OTHER DAY Qty: 30 0RF
diltiazem HCl [Cardizem CD] 240 mg capsule,extended release 24hr
240 mg PO DAILY Qty: 30 0RF
Continued
Eliquis 5 mg tablet
5 mg PO BID Qty: 60 0RF
dextroamphetamine-amphetamine 10 mg tablet
10 mg PO BID
Patient Comments:
05/18/2024: last filled 02/28/24, 60 tabs for 30 days from [facility]
omeprazole 40 mg capsule,delayed release(DR/EC)
40 mg PO DAILY
alprazolam 0.5 mg tablet
0.5 mg PO HS
Patient Comments:
05/18/2024: last filled 03/02/24, 180 tabs for 90 days from [facility]
alprazolam 0.5 mg tablet
0.5 mg PO DAILYPRN PRN (Reason: anxiety)
Patient Comments:
05/18/2024: last filled 03/02/24, 180 tabs for 90 days from [facility]
trazodone 100 mg tablet
200 mg PO HS
ropinirole 0.5 mg tablet
1 mg PO QPM
ropinirole 0.5 mg tablet
0.5 mg PO HS
albuterol sulfate 90 mcg/actuation HFA aerosol inhaler
2 puff INHALATION R Q4HPRN PRN (Reason: sob/wheezing)
losartan 100 mg tablet
100 mg PO DAILY
coenzyme Q10 [Co Q-10] 100 mg Capsule
100 mg PO DAILY
glucosamine-chondroitin [Osteo Bi-Flex] 250-200 mg Tablet
1 tab PO DAILY
rosuvastatin 5 mg tablet
5 mg PO DAILY
omega-3 acid ethyl esters 1 gram capsule
2 g PO BID
desvenlafaxine succinate 50 mg tablet extended release 24 hr
50 mg PO DAILY
Gemtesa 75 mg tablet
75 mg PO DAILY
Ozempic 0.25 mg or 0.5 mg (2 mg/3 mL) pen injector
0.25 mg SC SA
Fiber Gummies
6 tab PO DAILY
Fiber Gummies
4 tab PO QPM
Turmeric-Marely
2 tab PO DAILY
Discontinued
nebivolol 10 mg tablet
20 mg PO DAILY
aspirin 81 mg Tablet,Delayed Release (Dr/Ec)
81 mg PO DAILY
Discharge Orders:
Discharge Patient (As Directed); Ordered 05/21/24
Ordered By: Halima Burnham
Care Plan Goals
Care Plan Goals:
Problem: Readiness for enhanced knowledge related to diagnosis and treatment plan
Goal: Understand your diagnosis and treatment plan needs, including medications if applicable.
Instructions: Know your diagnosis, underlying causes and treatment plan options, including medications if applicable. Consult with your health care team to learn about your diagnosis and treatment plan, including medications if applicable.
Discharge Date and Time
Print Language: URUGUAYAN
--- NOTE | 2024-05-24 12:31 | PN.CDI ---
CDI
- -
CDI:
Physician Documentation Request
Admit Date: 05/18/24 19:12
Dear Doctor Johnathan,
Please review the following and provide your response in the progress notes.
Clinical Indicators:
Pt admitted with acute heart failure and atrial fibrillation.
05/19 Ambulatory Care Nurse Note: '68F with anxiety, depression, PTSD, hypertension and recently diagnosed atrial fibrillation presented for outpatient cardiology evaluation was referred to the emergency department for atrial fibrillation with rapid
ventricular response and concern for heart failure.
Atrial fibrillation with rapid ventricular response, persistent versus paroxysmal
-Transition to dilt 60 q6hr, plan to start long acting tomorrow
Heart failure, presumed HFpEF, acute
-Cont IV diuresis, stop diuresis tomorrow
Hypertension
-Stop nebivolol, continue losartan'
Based on the above, could you clarify in the progress notes, the appropriate diagnosis, if significant, that supports the above abnormalities and additional evaluation, monitoring and/or treatment rendered:
Acute heart failure due to Atrial fibrillation only
Acute Heart failure due to combination of Atrial fibrillation and Hypertension
Other
Use of terms such as suspected, likely, concern for, or probable (associated with a specific diagnosis that is being evaluated, monitored, or treated as if it exists) are acceptable and can be coded in the inpatient setting, when documented at the
time of discharge.
Thank you,
Reyna aKufman RN, BSN
CDI Specialist
Available via [employer]
Please use your independent medical judgment in providing your response.
== END 2024-05-21 13:00 | disposition home or self-care (01) | DRG 308 ==
LOC: IVU 19:12
PROVIDERS: Emergency Medicine; ADMITTING PHYSICIAN Internal Medicine; EMERGENCY PHYSICIAN Emergency Medicine; FAMILY PHYSICIAN Family Medicine
PROC: 3E02340 Introduction of Influenza Vaccine into Muscle, Percutaneous Approach (ICD-10-PCS; 2024-05-21)
DX: I48.0 Paroxysmal atrial fibrillation (principal); I50.31 Acute diastolic (congestive) heart failure; E11.9 Type 2 diabetes mellitus without complications; F41.9 Anxiety disorder, unspecified; F43.10 Post-traumatic stress disorder, unspecified; F51.04 Psychophysiologic insomnia; G25.81 Restless legs syndrome; I10 Essential (primary) hypertension; K21.9 Gastro-esophageal reflux disease without esophagitis; F90.9 Attention-deficit hyperactivity disorder, unspecified type; I72.8 Aneurysm of other specified arteries; E66.9 Obesity, unspecified; Z68.34 Body mass index [BMI] 34.0-34.9, adult; Z23 Encounter for immunization; Z87.891 Personal history of nicotine dependence; Z79.899 Other long term (current) drug therapy; Z79.85 Long-term (current) use of injectable non-insulin antidiabetic drugs; Z82.49 Family history of ischemic heart disease and other diseases of the circulatory system
CPT/HCPCS: 71046; 80048; 83036; 83735; 83880; 84132; 84439; 84443; 84484; 85025; 90662; 93005; 93306; 96374; 96375; 96376; 99291; G0008; Q9950

== ENCOUNTER → 2024-05-24 07:28 | Day surgery (SDC) | payer MEDICARE, OTHER, SELFPAY | LOC: CATH 07:28 | PROVIDERS: ATTENDING PHYSICIAN Internal Medicine Cardiovascular Disease; FAMILY PHYSICIAN Family Medicine | DX: I48.91 Unspecified atrial fibrillation (principal); R06.02 Shortness of breath; R09.02 Hypoxemia; I10 Essential (primary) hypertension; K21.9 Gastro-esophageal reflux disease without esophagitis; Z79.01 Long term (current) use of anticoagulants | CPT/HCPCS: 93312; 93320; 93325; 94640 ==

== ENCOUNTER → 2024-06-07 10:42 | Outpatient (REF) | payer MEDICARE, OTHER, SELFPAY | LOC: DHSLP 10:42 | PROVIDERS: ATTENDING PHYSICIAN Internal Medicine; FAMILY PHYSICIAN Family Medicine | DX: G47.33 Obstructive sleep apnea (adult) (pediatric) (principal) | CPT/HCPCS: 95800 ==

== ENCOUNTER 2024-06-21 07:52 | Day surgery (SDC) | payer MEDICARE, OTHER, SELFPAY ==
[2024-06-21 08:25] VITALS: BMI 36.3
== END 2024-06-21 10:40 | disposition home or self-care (01) ==
LOC: CATH 07:52
PROVIDERS: ATTENDING PHYSICIAN Internal Medicine Cardiovascular Disease; FAMILY PHYSICIAN Family Medicine
DX: I48.0 Paroxysmal atrial fibrillation (principal); I10 Essential (primary) hypertension; K21.9 Gastro-esophageal reflux disease without esophagitis; E66.09 Other obesity due to excess calories; Z68.36 Body mass index [BMI] 36.0-36.9, adult; J45.909 Unspecified asthma, uncomplicated; Z79.01 Long term (current) use of anticoagulants; Z79.85 Long-term (current) use of injectable non-insulin antidiabetic drugs
CPT/HCPCS: 92960; 93005

== ENCOUNTER 2025-07-05 18:54 | Emergency (ER) | payer MEDICARE, OTHER, SELFPAY ==
[2025-07-05 19:20] VITALS: BP 131/77
[2025-07-05 19:38] LABS: Hematocrit 45.9 % (37.0-47.0); Hemoglobin 15.3 g/dL (12.0-16.0); Mean Corp Hgb Conc. 33.3 g/dL (33.0-37.0); Mean Corpuscular Volume 95.4 fL (81.0-99.0); Nucleated Red Blood Cells % 0 %; Platelet Count 269 10^3/uL (130-400); Red Cell Dist. Width 12.8 % (11.5-14.5)
[2025-07-05 20:03] LABS: ALT (SGPT) 12 U/L (0-35); AST (SGOT) 21 U/L (14-36); Albumin 4.6 g/dl (3.5-5.0); Alkaline Phosphatase 62 U/L (38-126); Blood Urea Nitrogen 18 mg/dl (7-17); Calcium 9.5 mg/dl (8.4-10.2); Carbon Dioxide 27 mmol/L (22-30); Chloride 99 mmol/L (98-107); Glucose 98 mg/dl (70-99); Potassium 3.3 mmol/L (3.5-5.1); Sodium 137 mmol/L (135-145); Total Protein 7.1 g/dl (6.3-8.2); eGFR > 60.00
[2025-07-05 20:13] LABS: Troponin I < 0.012 ng/ml
[2025-07-05 21:06] VITALS: BMI 32.1
[2025-07-05 21:12] VITALS: BP 128/92
[2025-07-05] MEDS: ELIQUIS 5 MG PO (23:34)
--- NOTE | 2025-07-05 23:37 | ED.GENMED ---
History of Present Illness
<Anna Solis PA-C - Last Filed: 07/06/25 02:43>
General
Chief Complaint: Heart Rate Problem
Time Seen by Provider: 07/05/25 23:05
History of Present Illness
History of Present Illness:
SEE mdm
Past History
<Anna Solis PA-C - Last Filed: 07/06/25 02:43>
Past History
ED Past Medical History: HTN and Psychiatric
ED Past Surgical History: Orthopedic
Social History
Tobacco: Non-smoker
Alcohol: None
Phy Exam
<Anna Solis PA-C - Last Filed: 07/06/25 02:43>
Physical Exam
Physical Exam:
SEE mdm
Course
<Anna Solis PA-C - Last Filed: 07/06/25 02:43>
Orders/Labs/Results
Orders:
Orders
07/05/25 18:55
EKG [Electrocardiogram (*1)] Urgent
Reason for Study: Atrial Fibrillation
EKG- Treatment ONCE
07/05/25 19:24
Cardiac Monitoring- Treatment ONCE
IV Insert/Care/Rem.- Treatment PRN
CR Chest - 2 Views Urgent
Comment:
Reason For Exam: respiratory distress
O2 Therapy [RESP] Urgent
Titrate/Wean O2 to maintain O2 sat greater than (%): 93
Special Instructions: TO MAINTAIN CONTINUOUS O2 SATS >/= 93%
Pulse Ox/cont/shift [RESP] Urgent
Quantity: 1
Special Instructions: continuous pulse ox
07/05/25 19:29
Complete Blood Count/With Diff Urgent
Comprehensive Metabolic Panel Urgent
NT-proBNP Urgent
Troponin I Urgent
07/05/25 21:12
EKG [Electrocardiogram (*1)] Urgent
Reason for Study: Other
Other Reason for Exam: change in rythym
07/05/25 21:13
EKG- Treatment ONCE
07/05/25 23:31
Apixaban [Eliquis] 5 mg PO NOW STA
07/06/25 00:25
Propofol [Diprivan] 20 ml .ROUTE .STK-MED
07/06/25 00:38
Propofol [Diprivan] 60 mg IV NOW STA
07/06/25 00:42
EKG [Electrocardiogram (*1)] Urgent
Reason for Study: Other
Other Reason for Exam: post cardioversion
EKG- Treatment ONCE
Abnormal Lab Results
07/05/25
19:29
MCH 31.8 H pg
(27.0-31.0)
Potassium 3.3 L mmol/L
(3.5-5.1)
BUN 18 H mg/dl
(7-17)
07/05/25 19:29
07/05/25 19:29
Vital Signs
Initial and Last Documented VS:
Initial Vital Signs
Temp Pulse Resp BP Pulse Ox
36.5 C 72 20 131/77 98
07/05/25 19:20 07/05/25 19:20 07/05/25 19:20 07/05/25 19:20 07/05/25 19:20
Last Documented Vital Signs
Temp Pulse Resp BP Pulse Ox
36.4 C 82 16 111/78 95
07/06/25 02:18 07/06/25 02:18 07/06/25 02:18 07/06/25 02:18 07/06/25 02:18
Jesúslt;King Johnson, DO - Last Filed: 07/06/25 00:45>
Orders/Labs/Results
Orders:
Orders
07/05/25 18:55
EKG [Electrocardiogram (*1)] Urgent
Reason for Study: Atrial Fibrillation
EKG- Treatment ONCE
07/05/25 19:24
Cardiac Monitoring- Treatment ONCE
IV Insert/Care/Rem.- Treatment PRN
CR Chest - 2 Views Urgent
Comment:
Reason For Exam: respiratory distress
O2 Therapy [RESP] Urgent
Titrate/Wean O2 to maintain O2 sat greater than (%): 93
Special Instructions: TO MAINTAIN CONTINUOUS O2 SATS >/= 93%
Pulse Ox/cont/shift [RESP] Urgent
Quantity: 1
Special Instructions: continuous pulse ox
07/05/25 19:29
Complete Blood Count/With Diff Urgent
Comprehensive Metabolic Panel Urgent
NT-proBNP Urgent
Troponin I Urgent
07/05/25 21:12
EKG [Electrocardiogram (*1)] Urgent
Reason for Study: Other
Other Reason for Exam: change in rythym
07/05/25 21:13
EKG- Treatment ONCE
07/05/25 23:31
Apixaban [Eliquis] 5 mg PO NOW STA
07/06/25 00:25
Propofol [Diprivan] 20 ml .ROUTE .STK-MED
07/06/25 00:38
Propofol [Diprivan] 60 mg IV NOW STA
07/06/25 00:42
EKG [Electrocardiogram (*1)] Urgent
Reason for Study: Other
Other Reason for Exam: post cardioversion
EKG- Treatment ONCE
Abnormal Lab Results
07/05/25
19:29
MCH 31.8 H pg
(27.0-31.0)
Potassium 3.3 L mmol/L
(3.5-5.1)
BUN 18 H mg/dl
(7-17)
07/05/25 19:29
07/05/25 19:29
Vital Signs
Initial and Last Documented VS:
Initial Vital Signs
Temp Pulse Resp BP Pulse Ox
36.5 C 72 20 131/77 98
07/05/25 19:20 07/05/25 19:20 07/05/25 19:20 07/05/25 19:20 07/05/25 19:20
Last Documented Vital Signs
Temp Pulse Resp BP Pulse Ox
36.4 C 82 16 111/78 95
07/06/25 02:18 07/06/25 02:18 07/06/25 02:18 07/06/25 02:18 07/06/25 02:18
Procedures
<Anna Solis PA-C - Last Filed: 07/06/25 02:43>
Cardioversion
Indication:: Afib
Performed by:: myself and dr. johnson
Synchronized?: Yes
Energy Used: Other (250)
Number of attempts: 1
Successful?: Yes
ASA Risk Score: Class III
Any reaction or bad outcome to prior sedation/anesthesia?: No history of a reaction
Sedation level to be attained: minimal
Chart and allergies reviewed: Yes
Patient reassessed prior to sedation: Yes
Time out completed at (validating right patient & procedure): 00:26
History of difficult intubation: No
Airway free of obstruction: Yes
Patient has a gag reflex: Yes
Patient is able to open mouth: Yes
Patient has no dentures: No
Patient has no loose teeth: Yes
Medication administered by Provider during Moderate Sedation: IV Propofol (mg) (60)
Total dose administered: 60
Time drug administered: 00:38
Start Time: 00:38
Stop Time: 00:48
<Anna Solis PA-C - Last Filed: 07/06/25 02:43>
MDM/Problems Addressed
Differential Diagnosis Includes:
see MDM
MDM/Problems Addressed:
Note:
CHIEF COMPLAINT(S)
Palpitations and elevated heart rate.
HISTORY OF PRESENT ILLNESS
The patient, 69 yo a female with a history of atrial fibrillation, presented with concerns of palpitations and an elevated heart rate. The patient has been diagnosed with atrial fibrillation for just over a year and has undergone cardioversion once
previously, requiring two electrical shocks and has been in sinus since. She is currently on Apixaban and reports strict adherence to her medication regimen, taking it twice daily
today. The patient noticed symptoms resembling a panic attack, including an elevated heart rate averaging 120 bpm as per her smartwatch. These symptoms persisted for a couple of hours before her arrival at the emergency department. Upon evaluation,
her heart rate had improved to the 90s, and she reported no current symptoms of chest pain, dyspnea, leg swelling, or syncope.
Currently, the patient denies any recent alcohol consumption and reported consuming only a protein shake today. Given her likely need for sedation during the anticipated cardioversion, the lack of food intake is seen as beneficial.
PAST MEDICAL AND SURIGICAL HISTORY
The patient has a history of spinal surgery, including fusion with rods and screws.
CHRONIC MEDICAL CONDITIONS SIGNIFICANTLY AFFECTING CARE
Atrial Fibrillation
PHYSICAL EXAM
- Nursing notes reviewed and vital signs reviewed.
GENERAL: Alert , in no apparent distress
EYE: pupils equal and reactive
NECK: Supple
ENT: o/p clr, mmm.
CARDIAC: Irregularly irregular, rate controlled
LUNGS: Clear breath sounds bilaterally, no acute respiratory distress, no wheezes/rales/rhonchi
ABDOMEN: Soft, without focal tenderness, no r/g, no cvat, normal bowel sounds
NEUROLOGICAL: Alert and oriented, no focal neuro deficits
SKIN: Warm and dry, skin intact.
MUSCULOSKELETAL: No edema, well perfused. neg elissa's sign
PSYCH: Normal and appropriate interaction.
PLAN
Proceed with cardioversion. Preemptively discuss the requirement for sedation. Ensure patient�s Apixaban dose is accounted for. Coordinate with the ER physician, Dr. Warren, for setup and timing of the procedure.
DIFFERENTIAL DIAGNOSIS
The Differential Diagnosis includes, in no particular order and is not limited to:
1. Atrial Fibrillation
2. Supraventricular Tachycardia
3. Anxiety or Panic Disorder
4. Hyperthyroidism
5. Cardiac Arrhythmia due to Medication
6. Pulmonary Embolism
7. Electrolyte Imbalance
8. Ischemic Heart Disease
9. Congestive Heart Failure
10. Anemia
69-year-old female with a history of paroxysmal A-fib on Eliquis compliant with her Eliquis presents for feeling like she went into A-fib around 4 PM today while at rest. Patient says she felt anxious and checked her Apple Watch which showed her
she was in A-fib with a rate of 120. She never had any chest pain. Her anxiety feeling resolved. She has been in the 90s here irregularly irregular with A-fib EKG. Her labs and chest x-ray were otherwise stable and negative. The patient is
requesting to be cardioverted. She was seen by ED attending, we did perform a cardioversion after I reviewed old records that show she required 2 shocks last time, we used 300 J this time. Patient adequately recovered from moderate sedation.
Discharge home.
<Anna Solis PA-C - Last Filed: 07/06/25 02:43>
*Pulse Oximetry
SaO2: 100
Oxygen Mode of Delivery: Room air
Patient hypoxic: no (95)
*Critical Care Note
Total Time (30-74mins, 75-104mins- exclusive of procedures): Not Applicable
ED Attending Note
<Anna Solis PA-C - Last Filed: 07/06/25 02:43>
-
Portions of this chart may have been created with voice recognition software.� Occasional wrong word or��sound alike� substitutions may have occurred due to the inherent limitations of voice recognition software.
<King Johnson DO - Last Filed: 07/06/25 00:45>
ED Attending Note
Patient seen and examined by attending physician: Yes
I performed the substantive portion of visit, reviewed & personally made and approve the management plan that is documented in note by myself or SIMRAN.: Yes
ED Attending Note:
Pleasant 69-year-old female presents to the emergency department with atrial fibrillation. She has an Apple Watch and noted around 4 PM, she started to feel palpitations. She confirmed that she was in A-fib. She has been cardioverted in the past,
and presented to the emergency department wishing to be cardioverted again. Patient denies chest pain or shortness of breath. Patient does follow with Adeel Guido. Patient is on Eliquis and states that she has been.
I was present for the duration of the cardioversion. I personally administered the propofol. 60 mg
Discharge Plan
Departure
Patient Disposition: Home (Routine Discharge)
Date of Disposition: 07/06/25
Time of Disposition: 02:11
Patient with high blood pressure during this ER visit?: No
Condition: Fair
Covid-19: Not Applicable
Discharge Problem:
Paroxysmal atrial fibrillation
Instructions: Atrial Fibrillation (DC), MODERATE SEDATION ADULT
Prescriptions:
No Action
Eliquis 5 mg tablet
5 mg PO BID Qty: 60 0RF
dextroamphetamine-amphetamine 10 mg tablet
10 mg PO BID
Patient Comments:
05/18/2024: last filled 02/28/24, 60 tabs for 30 days from [facility]
omeprazole 40 mg capsule,delayed release(DR/EC)
40 mg PO DAILY
alprazolam 0.5 mg tablet
0.5 mg PO HS
Patient Comments:
05/18/2024: last filled 03/02/24, 180 tabs for 90 days from [facility]
alprazolam 0.5 mg tablet
0.5 mg PO DAILYPRN PRN (Reason: anxiety)
Patient Comments:
05/18/2024: last filled 03/02/24, 180 tabs for 90 days from [facility]
trazodone 100 mg tablet
200 mg PO HS
ropinirole 0.5 mg tablet
1 mg PO QPM
ropinirole 0.5 mg tablet
0.5 mg PO HS
albuterol sulfate 90 mcg/actuation HFA aerosol inhaler
2 puff INHALATION R Q4HPRN PRN (Reason: sob/wheezing)
losartan 100 mg tablet
100 mg PO DAILY
coenzyme Q10 [Co Q-10] 100 mg Capsule
100 mg PO DAILY
glucosamine-chondroitin [Osteo Bi-Flex] 250-200 mg Tablet
1 tab PO DAILY
rosuvastatin 5 mg tablet
5 mg PO DAILY
omega-3 acid ethyl esters 1 gram capsule
2 g PO BID
desvenlafaxine succinate 50 mg tablet extended release 24 hr
50 mg PO DAILY
Gemtesa 75 mg tablet
75 mg PO DAILY
Fiber Gummies
4 tab PO QPM
Turmeric-Marely
2 tab PO DAILY
dapagliflozin propanediol 10 mg Tablet
10 mg PO DAILY Qty: 30 0RF
furosemide 40 mg Tablet
40 mg PO Q OTHER DAY Qty: 30 0RF
diltiazem HCl [Cardizem CD] 240 mg capsule,extended release 24hr
240 mg PO BID
fluticasone furoate-vilanterol [Breo Ellipta] 200-25 mcg/dose Blister With Device
1 inh INHALATION DAILY
dextroamphetamine sulfate 10 mg Tablet
10 mg PO BID
Ozempic 0.25 mg or 0.5 mg (2 mg/3 mL) Pen Injector
0.5 mg SC QWEEK
Referrals:
Rayna Painting DO [Family Provider, Family Practice]
Activity Restrictions/Additional Instructions:
You were cardioverted today successfully back into sinus rhythm. Continue your Eliquis. Call your bankruptcy legal assistant and make an appointment. Return for any concern
No driving today, make sure that you are eating light diet as tolerated
Interventions
Interventions:
*General Assessment Last Done: 07/05/25 19:20
*Neglect/Abuse Screening Last Done: 07/05/25 19:20
*ED COVID-19 Vaccine History Last Done: 07/05/25 19:20
*ED Influenza Vaccine History Last Done: 07/05/25 19:20
[facility] Fall Risk Assessment Tool Last Done: 07/05/25 21:04
*Risk Screen - Suicide (C-SSRS) Last Done: 07/05/25 21:02
*Nursing Disposition Last Done: 07/06/25 02:18
ED- Cardiac Assessment Last Done: 07/05/25 21:14
ED- Pulmonary Assessment Last Done: 07/05/25 21:15
Discharge Date and Time
Discharge Date/Time: 07/06/25 02:32
Print Language: HUNGARIAN
[2025-07-06] VITALS (10 sets, daily range): BP systolic 108–128; BP diastolic 68–87
[2025-07-06] MEDS: DIPRIVAN 60 MG IV (00:38)
== END 2025-07-06 02:32 | disposition home or self-care (01) ==
LOC: EMR 18:54
PROVIDERS: Emergency Medicine; EMERGENCY PHYSICIAN Student in an Organized Health Care Education/Training Program; FAMILY PHYSICIAN Family Medicine
DX: I48.0 Paroxysmal atrial fibrillation (principal); I10 Essential (primary) hypertension; Z98.1 Arthrodesis status; Z79.01 Long term (current) use of anticoagulants
CPT/HCPCS: 92960; 99152; 99285; 71046; 80053; 83880; 84484; 85025; 93005; 96360